=== PATIENT | female | born 1950 | race Caucasian/White ===

== ENCOUNTER 2018-01-13 23:00 | Emergency (ER) | payer BC, MEDICARE ==
[2018-01-13] MEDS ORDERED: LIDOCAINE HCL-MPF 1% 2ML VIAL ONE (23:25)
[2018-01-13] MEDS ORDERED: CEFTRIAXONE SODIUM 1 GM ONE (23:25)
[2018-01-13] MEDS ORDERED: TETANUS/DIPHTHERIA TOXOID [ADULT] 0.5 ML VIAL IM ONE (23:26)
== END 2018-01-13 23:39 | disposition home or self-care (01) ==
LOC: EDH 23:00
DX: S60.871A Other superficial bite of right wrist, initial encounter (principal); S50.872A Other superficial bite of left forearm, initial encounter; S60.474A Other superficial bite of right ring finger, initial encounter; I10 Essential (primary) hypertension; E07.9 Disorder of thyroid, unspecified; Z85.3 Personal history of malignant neoplasm of breast; W54.0XXA Bitten by dog, initial encounter; Y93.89 Activity, other specified; Y92.89 Other specified places as the place of occurrence of the external cause; Y99.8 Other external cause status
CPT/HCPCS: 90471; 90714; 96372; 99284; J0696; J3490